=== PATIENT | male | born 1950 | race African-American/Black ===

== ENCOUNTER 2017-10-31 18:00 | Emergency (ER) | payer SELFPAY ==
[~2017-10-31] VITALS: Ht 180.3 cm; Wt 104.3 kg
[2017-10-31] MEDS ORDERED: LEVOFLOXACIN 750MG 150 ML IV ONE (19:45)
[2017-10-31 20:08] LABS: Basophils # (auto) 0.2 uL; Basophils % (auto) 1.1 % (0.0-2.0); Eosinophils # (auto) 0 uL; Eosinophils % (auto) 0.2 % (0.0-7.0); Hematocrit 43.1 % (41.0-53.0); Hemoglobin 14.5 g/dL (13.5-17.5); Lymphocytes % (auto) 14.2 % (10.0-50.0); Mean Corpuscular Hemoglobin 29.7 pg (28.0-32.0); Mean Corpuscular Hgb Conc. 33.7 g/dL (32.0-36.0); Mean Corpuscular Volume 88.2 fL (80.0-100.0); Monocytes # (auto) 1.8 uL; Monocytes % (auto) 13.2 % (0.0-12.0); Neutrophils % (auto) 71.3 % (37.0-80.0); Nucleated Red Blood Cells % 0.2 %; Platelet Count (auto) 329 10^3/uL (140-450); Red Blood Cells 4.88 10^6/uL (4.5-5.90); Red Cell Distribution Width 13.6 % (11.8-14.3)
[2017-10-31 20:36] LABS: Bilirubin, Total 0.9 mg/dL (0.2-1.0); Calcium 9.6 mg/dL (8.5-10.1); Potassium 3.8 mmol/L (3.5-5.1); Total Protein 8.1 g/dL (6.4-8.2)
[2017-10-31 23:11] VITALS: BP 154/92
== END 2017-11-01 00:23 | disposition home or self-care (01) ==
LOC: ER 18:03
DX: J18.1 Lobar pneumonia, unspecified organism (principal); M19.031 Primary osteoarthritis, right wrist; I10 Essential (primary) hypertension
CPT/HCPCS: 36415; 71046; 73110; 80053; 83605; 84550; 85025; 87040; 96365; 99285; J1956

== ENCOUNTER 2022-05-05 07:36 | Emergency (ER) | payer OTHER ==
[~2022-05-05] VITALS: Ht 180.3 cm; Wt 106.8 kg
[2022-05-05] MEDS ORDERED: SODIUM CHLORIDE 0.9% 1,000 ML IV ONE (08:30)
[2022-05-05] MEDS ORDERED: EPINEPHrine HCL 1 MG/1 ML AMP SC ONE (08:30)
[2022-05-05] MEDS ORDERED: LORATADINE 10 MG TAB PO ONE (08:30)
[2022-05-05] MEDS ORDERED: PRED10TA PO (08:47)
[2022-05-05] MEDS ORDERED: CETITAB29 PO (08:47)
[2022-05-05] MEDS ORDERED: CLIN300C8 PO (08:47)
[2022-05-05 09:30] VITALS: BP 124/75
== END 2022-05-05 09:51 | disposition home or self-care (01) ==
LOC: ER 07:36
DX: I10 Essential (primary) hypertension (principal); T63.441A Toxic effect of venom of bees, accidental (unintentional), initial encounter; Z79.2 Long term (current) use of antibiotics; Z79.899 Other long term (current) drug therapy; Z91.030 Bee allergy status; Y92.89 Other specified places as the place of occurrence of the external cause
CPT/HCPCS: 96360; 96372; 99283; J0171; J7030; 96361

== ENCOUNTER 2023-05-18 14:04 | Emergency (ER) | payer OTHER ==
[~2023-05-18] VITALS: Ht 180.3 cm; Wt 96.4 kg
[~2023-05-18 14:04] MED LIST: CETITAB29 PO; CLIN300C70 PO; PRED10TA PO
[2023-05-18 15:24] VITALS: BP 167/93; PULSE 72; RESP 18; TEMP 97.8; O2SAT 97
[2023-05-18] MEDS ORDERED: methylPREDNISolone SOD SUCC 40 MG/ML VL IM ONE (16:00)
[2023-05-18] MEDS ORDERED: PRED20TA2 PO (16:44)
[2023-05-18] MEDS ORDERED: CEPH500C PO (16:44)
== END 2023-05-18 16:47 | disposition home or self-care (01) ==
LOC: ER 14:04
DX: S01.112A Laceration without foreign body of left eyelid and periocular area, initial encounter (principal); T78.49XA Other allergy, initial encounter; I10 Essential (primary) hypertension; Z79.899 Other long term (current) drug therapy; X58.XXXA Exposure to other specified factors, initial encounter; W22.8XXA Striking against or struck by other objects, initial encounter; Y93.89 Activity, other specified; Y92.89 Other specified places as the place of occurrence of the external cause; Y99.8 Other external cause status
CPT/HCPCS: 96372; 99283; J2920